=== PATIENT | female | born 1960 | race Caucasian/White ===

== ENCOUNTER 2021-09-16 08:41 | Observation (INO) ==
[2021-09-15 13:01] LABS: Basophils # (auto) 0.01 K/uL (0-0.2); Basophils % (auto) 0.2 %; Eosinophils # (auto) 0.14 K/uL (0-0.5); Eosinophils % (auto) 2.6 %; Hematocrit (blood only) 43.8 % (37-47); Hemoglobin 14.3 g/dL (12.0-16.0); Lymphocytes # (auto) 2.35 K/uL (1.2-3.4); Lymphocytes % (auto) 42.8 %; Mean Corpuscular Hgb Conc 32.6 g/dL (32-36); Mean Corpuscular Volume 88.8 fL (80-100); Mean Platelet Volume 10.4 fL (7.4-10.4); Monocytes # (auto) 0.63 K/uL (0.11-0.59); Monocytes % (auto) 11.5 %; Neutrophils # (auto) 2.36 K/uL (1.4-6.5); Neutrophils % (auto) 42.9 %; Platelet Count 291 K/uL (130-400); RDW Coefficient of Variation 14.7 % (11.5-14.5); RDW Standard Deviation 48.1 fL (36.4-46.3); Red Blood Count 4.93 M/uL (4.2-5.4); White Blood Count 5.49 K/uL (4.8-10.8)
[2021-09-15 13:21] LABS: Alanine Aminotransferase 14 U/L (7-52); Albumin Globulin Ratio 1.4 (0.9-2); Albumin Level 4.1 gm/dl (3.4-5.0); Alkaline Phosphatase 64 U/L (34-104); Anion Gap 7 (3-11); Aspartate Aminotransferase 19 U/L (13-39); BUN Creatinine Ratio 24.7 (10-20); Bilirubin,Total 0.5 mg/dl (0.2-1.0); Blood Urea Nitrogen 19 mg/dl (6-23); Calcium 9.2 mg/dl (8.5-10.1); Carbon Dioxide 28 mmol/L (21-32); Chloride 105 mmol/L (98-107); Est GFR (African American) 96.6 ml/min; Est GFR (Non-African American) 83.3 ml/min; Glucose 99 mg/dl (70-99(Fasting)); Potassium 3.8 mmol/L (3.5-5.1); Sodium 140 mmol/L (136-145); Total Protein 7.1 gm/dl (6.0-8.3)
--- NOTE | 2021-09-15 14:40 | Anesthesiology Consultation ---
Date of Service September 15, 2021 Assessment & Plan (1) Encounter for pre-operative examination: - Patient is NOT outpatient join candidate. - Patient last seen by cardiology 03/31/21= seen for follow-up on recent cardiac catheterization and ascending thoracic aortic aneurysm. Patient with history of chest discomfortsubsequently underwent nuclear stress test revealed a small reversible apical perfusion defectfollow-up cardiac catheterization showed widely patent coronary arteries. In respect stress test was likely a false positive. Patient was transitioned off atenolol due to concerns of weight loss efforts and was put on lisinopril in the meantimeoff the atenolol she notes brief almost daily episodes of palpitations and a slight cough with lisinopril. No recurrent episodes of chest discomfort.Patient should maintain daily aspirin therapycan be held 5 to 7 days in advance to upcoming orthopedic surgery. Stable ascending root aneurysm. Repeat chest CT in 1 year. Patient was taken off lisinopril and resumed atenolol. "Preoperative cardiovascular examination: She is stable from a cardiology perspective to proceed with elective hip replacement is tentatively scheduled with Dr. Diallo in April. No further cardiac testing recommended at this time." - COVID screening: Per thrill performer on 09/15/2021: Travel screen negative, no known COVID-19 positive contacts or current COVID-19 related symptoms in past 2 weeks. Patient vaccinated. Surgeon arranging preop COVID testing, scheduled 09/15/2021. Awaiting results. Chart Review Chart Review: Acceptable Risk for Surgery and Patient NOT seen in Pre Admission Testing History Surgery Operation Date: 09/16/21 10:40 Proposed Procedures p Right Total Hip Arthroplasty - Zach Diallo MD Surgery re-scheduled, PAT appt 04/07/2021. Height/Weight Height: 5 ft 6 in Weight: 97.522 kg Allergies Allergy/AdvReac Type Severity Reaction Status Date / Time erythromycin base Allergy Intermediate RASH Verified 09/16/21 09:00 amoxicillin Allergy Mild RASH Verified 09/16/21 09:00 latex Allergy Mild pruritus Verified 09/16/21 09:00 Sulfa (Sulfonamide Allergy Mild RASH Verified 09/16/21 09:00 Antibiotics) Medications Home Medications Medication Instructions Recorded Confirmed Last Taken atenolol 25 mg tablet 12.5 mg PO QAM 09/22/20 09/16/21 09/16/21 07:00 tretinoin 0.05 % topical cream 1 applic TOPICAL HS 12/06/20 09/16/21 09/14/21 20:00 aspirin 81 mg tablet,delayed 81 mg PO QAM 01/04/21 09/16/21 09/15/21 07:00 release conjugated estrogens 0.625 mg 0.625 mg PO QAM 01/04/21 09/16/21 09/15/21 07:00 tablet (Premarin) nitroglycerin 0.4 mg sublingual See Rx Instructions .ROUTE .COMPLEX 01/04/21 09/16/21 Unknown tablet Wheeled Walker #1 ea 04/07/21 04/07/21 Unknown diclofenac sodium 75 mg 75 mg PO BID PRN #60 tab 07/21/21 09/16/21 Unknown tablet,delayed release acetaminophen 500 mg capsule 1,000 mg PO TID #180 cap 09/15/21 09/16/21 Unknown aspirin 81 mg tablet,delayed 81 mg PO BID 45 Days #90 tab 09/15/21 09/16/21 Unkn own release (Adult Aspirin Regimen) ketorolac 10 mg tablet 10 mg PO Q6 5 Days #20 tab 09/15/21 09/16/21 Unknown multivitamin 1 tab PO QPM 09/15/21 09/16/21 09/15/21 17:00 ondansetron HCl 4 mg tablet 4 mg PO Q6 PRN #30 tab 09/15/21 09/16/21 Unknown sennosides 8.6 mg-docusate sodium 1 tab-cap PO DAILY #14 tab 09/15/21 09/16/21 Unknown 50 mg tablet (Senokot-S) tramadol 50 mg tablet 50 - 100 mg PO Q6H PRN #40 tab 09/15/21 09/16/21 Unknown Active Medications Generic Name Dose Route Start Last Admin Trade Name Freq PRN Reason Stop Dose Admin Acetaminophen 1,000 mg 09/16/21 06:00 09/16/21 09:34 Acetaminophen 500 Mg Tab PO 09/16/21 18:00 1,000 mg PREOP IRINA Administration Famotidine 20 mg 09/16/21 06:00 09/16/21 09:34 Famotidine 20 Mg Tab PO 09/16/21 18:00 20 mg PREOP IRINA Administration Gabapentin 600 mg 09/16/21 06:00 09/16/21 09:34 Gabapentin 600 Mg Dose PO 09/16/21 18:00 600 mg PREOP IRINA Administration Lactated Ringer's 1,000 mls @ 15 mls/hr 09/16/21 06:00 09/16/21 09:35 Lr IV 09/16/21 18:00 15 mls/hr .Q24H IRINA Administration Lactated Ringer's 1,000 mls @ 60 mls/hr 09/16/21 06:00 09/16/21 09:35 Lr IV 09/16/21 22:39 Not Given .[id number] IRINA Metoclopramide HCl 10 mg 09/16/21 06:00 09/16/21 09:34 Metoclopramide Hcl 10 Mg Tablet PO 09/16/21 18:00 10 mg PREOP IRINA Administration Scopolamine 1 mg 09/16/21 06:00 09/16/21 09:33 Scopolamine 1 Mg Tdsy TD 09/16/21 18:00 1 mg PREOP IRINA Administration NPO Last Intake of Fluids Comment: Yesterday Last Intake of Solids Comment: Yesterday Past Medical History Medical History DDD (degenerative disc disease) HTN (hypertension) Osteoarthritis Pulmonary nodule Being monitored - stable in size Thoracic aortic aneurysm (TAA) Dr. George monitoring -- per 03/23/21 CTA= [id number] to mid ascending aortic dilation (stable in size from February 2020) plan for repeat CT chest in 1 yr per 03/2021 cardio note Thyroid nodule Benign with biopsy Past Family History Family History Other No family history of adverse response to anesthesia Past Surgical History Surgical History History of arthroscopy of right knee History of bunionectomy History of cardiac catheterization 12/2020 - [place] - [place] - no stents/angioplasty History of colonoscopy History of incision and drainage orofacial abscess History of total abdominal hysterectomy and bilateral salpingo-oophorectomy History of wisdom tooth extraction S/P thyroid biopsy Social History Smoking Status: Never smoker Do You Dip or Chew Tobacco: No Hx Alcohol Use: No Hx Substance Use: No substance use type: does not use Review of Systems "Occ palpitations - cardio aware - patient had recent med changes by cardio- restarted on beta nickolas Patient denies chest pain, shortness of breath, dyspnea on exertion, reflux, cough, wheezing. No hx of seizures, stroke, MA, apnea/snoring. No hx of blood clots or blood transfusions" Physical Exam Vital Signs Last Vital Signs Temp 36.6 C 09/16/21 09:08 Pulse 64 09/16/21 09:08 Resp 20 09/16/21 09:08 BP 143/84 H 09/16/21 09:08 Pulse Ox 100 09/16/21 09:08 VITALS BP 140/81 P 57 TEMP 98.7 SP02 98% RESP 16 Constitutional no acute distress ENMT Mouth: no TMJ clicking Thyromental Distance: < 3.5 Finger Breadths (2.5) Mallampati Class: II Missing molars Crowns to molars Neck neck extension not limited Respiratory normal respiratory effort; no respiratory distress Auscultation: lungs clear to auscultation bilaterally; no wheezes Cardiovascular Rate/Rhythm: regular rate and regular rhythm Heart Sounds: no murmur Vessels: no carotid bruit Musculoskeletal Spine: no pain with cervical ROM Extremities: extremities normal to inspection Psychiatric Orientation: alert Lab Results Anesthesia Preop Results Results Anesthesia Widget: WBC 5.49 K/uL (4.8-10.8) 09/15/21 Hgb 14.3 g/dL (12.0-16.0) 09/15/21 Hct 43.8 % (37-47) 09/15/21 Plt 291 K/uL (130-400) 09/15/21 Na 140 mmol/L (136-145) 09/15/21 K 3.8 mmol/L (3.5-5.1) 09/15/21 Cl 105 mmol/L (98-107) 09/15/21 CO2 28 mmol/L (21-32) 09/15/21 BUN 19 mg/dl (6-23) 09/15/21 Creat 0.77 mg/dl (0.6-1.2) 09/15/21 Glucose Level 99 mg/dl (70-99(Fasting)) 09/15/21 PT 10.0 Seconds (9.0-12.0) 09/15/21 INR 1.0 (0.9-1.1) 09/15/21 SARS-CoV-2, RNA, NAAT NEGATIVE (NEGATIVE) 09/16/21 Blood Type O Positive 09/15/21 Antibody Screen NEGATIVE 09/15/21 Testing Laboratory Results 09/15/21 08:17 09/15/21 08:17 PT 10.0 Seconds (9.0-12.0) 09/15/21 08:17 INR 1.0 (0.9-1.1) 09/15/21 08:17 Blood Type O Positive 09/15/21 08:17 Antibody Screen NEGATIVE 09/15/21 08:17 Electrocardiogram Date: 12/06/20 Findings: + NR @ (61bpm) Left axis deviation. Moderate voltage criteria for LVH, may be normal variant Chest X-Ray Date: 12/06/20 NAD Echocardiogram Date: 03/10/21 EF: 65-69% LV Function: normal RWMA: + none Other Findings: + diastolic dysfunction (Grade 1); no LVH Valvular Disease: + AI (Mild) Ascending aorta is moderately enlarged at 4.5 cm. When compared to study from 03/16/2020no significant changes found. Stress Test Date: 12/28/20 Type: nuclear Lexiscan nuclear stress test is positive for inducible ischemia involving the left ventricular apex. Gated SPECT images reveals normal myocardial thickening and wall motion. LVEF >70%. (Pt had subsequent cardiac catheterization 01/04/21 with normal coronary arteries) Cardiac Catheterization Date: 01/04/21 Widely patent and normal coronary anatomy. Normal left ventricular function. The ascending aorta is dilated.Measurements suggest an ascending aortic diameter of between 4.3 and 4.9 cm. The aortic valve and root have normal morphology. There is no significant aortic insufficiency. Other Testing Chest CTA 03/23/2021= stable mid ascending aortic dilation, 45 x 46 mm (was 44 x 46 mm 03/18/2020). Stable asymmetric enlargement and mild hypodensity of left lobe of thyroid. No suspicious pulmonary nodules. Left upper lobe nodule noted previously unchanged from priors and consistent with benign etiology. No pleural effusions or pneumothorax.
--- NOTE | 2021-09-15 22:42 | History & Physical Report ---
Date of Service September 15, 2021 Assessment & Plan (1) Arthritis of right hip: Take to OR for Right Hip Replacement. Risks and benefits explained. Desires to proceed. History of Present Illness Chief Complaint: . Right HIp Pain Primary Care Provider: Mathew Butts MD . 61 year old female with 6-7 year history of increasing right hip pain. Failed all conservative measures. Groin and thigh pain. Increased with ambulation. Allergies Allergy/AdvReac Type Severity Reaction Status Date / Time erythromycin base Allergy Intermediate RASH Verified 09/15/21 08:30 amoxicillin Allergy Mild RASH Verified 09/15/21 08:30 latex Allergy Mild pruritus Verified 09/15/21 08:30 Sulfa (Sulfonamide Allergy Mild RASH Verified 09/15/21 08:30 Antibiotics) Home Medications Medication Instructions Recorded Confirmed Type atenolol 25 mg tablet 12.5 mg PO QAM 09/22/20 09/15/21 History tretinoin 0.05 % topical cream 1 applic TOPICAL HS 12/06/20 09/15/21 History aspirin 81 mg tablet,delayed 81 mg PO QAM 01/04/21 09/15/21 History release conjugated estrogens 0.625 mg 0.625 mg PO QAM 01/04/21 09/15/21 History tablet (Premarin) nitroglycerin 0.4 mg sublingual See Rx Instructions .ROUTE .COMPLEX 01/04/21 09/15/21 History tablet Wheeled Walker #1 ea 04/07/21 04/07/21 Rx diclofenac sodium 75 mg 75 mg PO BID PRN #60 tab 07/21/21 09/15/21 Rx tablet,delayed release acetaminophen 500 mg capsule 1,000 mg PO TID #180 cap 09/15/21 Rx aspirin 81 mg tablet,delayed 81 mg PO BID 45 Days #90 tab 09/15/21 Rx release (Adult Aspirin Regimen) ketorolac 10 mg tablet 10 mg PO Q6 5 Days #20 tab 09/15/21 Rx multivitamin 1 tab PO QPM 09/15/21 09/15/21 History ondansetron HCl 4 mg tablet 4 mg PO Q6 PRN #30 tab 09/15/21 Rx sennosides 8.6 mg-docusate sodium 1 tab-cap PO DAILY #14 tab 09/15/21 Rx 50 mg tablet (Senokot-S) tramadol 50 mg tablet 50 - 100 mg PO Q6H PRN #40 tab 09/15/21 Rx Past Med/Surg History Medical History DDD (degenerative disc disease) HTN (hypertension) Osteoarthritis Pulmonary nodule Being monitored - stable in size Thoracic aortic aneurysm (TAA) Dr. George monitoring -- per 03/23/21 CTA= [id number] to mid ascending aortic dilation (stable in size from February 2020) plan for repeat CT chest in 1 yr per 03/2021 cardio note Thyroid nodule Benign with biopsy Surgical History History of arthroscopy of right knee History of bunionectomy History of cardiac catheterization 12/2020 - [place] - [place] - no stents/angioplasty History of colonoscopy History of incision and drainage orofacial abscess History of total abdominal hysterectomy and bilateral salpingo-oophorectomy History of wisdom tooth extraction S/P thyroid biopsy Family History Other No family history of adverse response to anesthesia Social History Smoking Status: Never smoker Second Hand Exposure: Yes (as a child); Hx Alcohol Use: No Hx Substance Use: No Preferred Language: Czech Communication Ability: Effective Hoisting Engineer Required: No Beliefs That Will Affect Care: None Current Living Situation: Spouse Feels Safe at Home: Yes Assistive Devices: None Review of Systems All systems reviewed & are unremarkable except as noted in HPI & below. Physical Exam Right Hip Exam reveals walk with limp. Limited hip ROM with pain with internal rotation. Negative SLR. N/V intact Results & Data Results & Data Laboratory Results . Diagnostic Findings .X-rays show advanced hip arthritis; PG Care Time/CCT Total # of Minutes Spent Total Time Spent with Patient: Total time spent is greater than 50% in coordination of care (as documented) at patient's floor/unit and/or counseling patient: Coding Level of Care Code 93728 Initial Inpt Care Lvl 3 Diagnoses Arthritis of right hip M16.11
[~2021-09-16 08:41] MED LIST: ACETAMINOPHEN 500 MG TAB PO SCH; BUPIVACAINE 0.5 % 5 MG/1 ML PF 10ML VIAL ONE; BUPIVACAINE LIPOSOME/PF 266 MG, BUPIVACAINE/EPINEPHRINE 50 ML, SODIUM CHLORIDE 0.9% 30 ... INFIL SCH; FAMOTIDINE 20 MG TAB PO SCH; GABAPENTIN 600 MG DOSE PO SCH; LR 500ML BOLUS, THEN 15ML/HR IV SCH; LR 60ML/HR IV SCH; METOCLOPRAMIDE HCL 10 MG TABLET PO SCH; Scopolamine 1 MG TDSY TD SCH; TRANEXAMIC ACID 1,000 MG **IV Pre-op IV SCH; ceFAZolin 2000MG 2,000 MG/15 ML SYR IV SCH
--- NOTE | 2021-09-16 08:54 | History & Physical Bridge Note ---
Date of Service September 16, 2021 History & Physical Bridge Note I have examined the patient, reviewed the History & Physical and in the interval since the performance of the History & Physical I have noted the following changes of clinical significance: no changes noted
[2021-09-16] MEDS ORDERED: MIDAZOLAM HCL 1 MG/ML 2ML VIAL ONE (09:28)
[2021-09-16] MEDS ORDERED: PROPOFOL IV EMULSION 10 MG/ML 20 ML VIAL IV ONE ×2 (09:29→12:55)
[2021-09-16] MEDS ORDERED: MoRPHine SULFATE PF 1 MG/ML 10 ML AMP/VIAL ONE (09:40)
[2021-09-16] MEDS ORDERED: NALBUPHINE HCL INJ 10 MG/ML AMP IV PRN (10:41)
[2021-09-16] MEDS ORDERED: MoRPHine SULFATE PF 1 MG/ML 10 ML AMP/VIAL INT SPINAL ONE (10:41)
[2021-09-16] MEDS ORDERED: PROMETHAZINE HCL 12.5 MG in SODIUM CHLORIDE 0.9% 50 ML IV PRN (10:41)
[2021-09-16] MEDS ORDERED: diphenhydrAMINE 50 MG/ML VIAL IV PRN (10:41)
[2021-09-16] MEDS ORDERED: MEPERIDINE HCL 25 MG/ML CARP/VIAL IV PRN (10:41)
[2021-09-16] MEDS ORDERED: NALOXONE HCL 1 MG in SODIUM CHLORIDE 0.9% 1000ML 1,000 ML IV PRN (10:41)
[2021-09-16] MEDS ORDERED: NALOXONE HCL 0.08 MG in SYRINGE 1.8 ML IV PRN (10:41)
[2021-09-16] MEDS ORDERED: NALOXONE HCL 0.4 MG/1 ML VIAL/CARP IV PRN (10:41)
[2021-09-16] MEDS ORDERED: KETOROLAC 30 MG/ML VIAL IV PRN (10:41)
[2021-09-16] MEDS ORDERED: LACTATED RINGER'S 500 ML IV PRN (10:41)
[2021-09-16] MEDS ORDERED: ePHEDrine sulfate 50 MG/ML AMP IV PRN (10:41)
[2021-09-16] MEDS ORDERED: ONDANSETRON INJ 2 MG/ML 2 ML VIAL IV PRN (10:41)
[2021-09-16] MEDS ORDERED: DC INTRASPINAL MORPHINE SCH (10:45)
[2021-09-16] MEDS ORDERED: NO NARCOTICS OR SEDATIVES SCH (10:45)
[2021-09-16] MEDS ORDERED: SODIUM CHLORIDE 0.9% 1000ML 1,000 ML IV SCH (10:45)
[2021-09-16] MEDS ORDERED: BUPIVACAINE 0.5 % 5 MG/1 ML MPF 30ML VIAL ONE (11:04)
[2021-09-16] MEDS ORDERED: EPINEPHrine INJ 1 MG/ML AMP ONE (11:05)
[2021-09-16] MEDS ORDERED: ONDANSETRON INJ 2 MG/ML 2 ML VIAL ONE (11:39)
[2021-09-16] MEDS ORDERED: KETOROLAC 30 MG/ML VIAL ONE (11:39)
[2021-09-16] MEDS ORDERED: ePHEDrine sulfate 50 MG/ML AMP ONE (11:52)
[2021-09-16] MEDS ORDERED: MAGNESIUM HYDROXIDE SUSP 30 ML UDC PO PRN (13:18)
[2021-09-16] MEDS ORDERED: METOCLOPRAMIDE HCL INJ 5 MG/ML 2 ML VIAL IV PRN (13:18)
[2021-09-16] MEDS ORDERED: bisacodyL 10 MG SUPP PR PRN (13:18)
[2021-09-16] MEDS ORDERED: ALUMINUM/MAGNESIUM SUSP 30 ML UDC PO PRN (13:18)
--- NOTE | 2021-09-16 13:35 | Operative Report ---
PG Post Operative Report Pre & Post Diagnosis Operation Date: 09/16/21 10:40 Pre-Op Diagnosis: Right Hip Degenerative Joint Disease Post-Op Diagnosis: Right Hip Degenerative Joint Disease I identified the patient and participated in the time-out.: Yes Procedure Operation Date: 09/16/21 10:40 Actual Procedures p Right Total Hip Arthroplasty--Uncemented(Right) - Zach Diallo MD Surgeon Zach Diallo MD Staffing Consultant Kumar Stinson PA-C Estimated Blood Loss 300 Findings Consistent with Post-Op Diagnosis Operative findings were advanced right hip DJD. She had fairly advanced arthritis particular the superior dome of the femoral head. Very large soft tissue envelope. Moderate-sized joint effusion. Not a lot of osteophyte formation Fluids 2000 cc Specimens Right femoral head sent for pathology Drains None Anesthesia Type Spinal MAC Complications none Disposition Accompanied Patient To Recovery: Yes Indications Patient is a 61-year-old female has had a 7-year history of increasing right hip pain discomfort is gotten singly worse over the past 6 months. She failed conservative measures. X-rays show progressive arthritis of her hip but with complete loss of superior joint space. She elected proceed with surgical treatment. Description of Procedure Operative implants consist of: 1 Biomet G7 size 48 mm acetabular shell. 2. 6.5 cancellous acetabular screws 1 of 35 mm in length 1 to 20 mm length. 3. [place] hole head strength and conditioning coach. 4. Highly cross-linked polyethylene liner with a 48 mm outer diameter, 32 mm inner diameter with a garcia placed inferior and posterior. 5. Dominique Karaya size 10 KLA femoral stem. 6. +9/32 mm ceramic articular ball. The patient was taken to the operating, identified, placed on the operating table supine position protectors were properly padded. IV antibiotics tried by anesthesia team. A spinal anesthetic and been implemented holding area. The patient was then placed in the left lateral cubitus position. An axillary roll was placed. Stulberg hip positioner was used for positioning. The right hip and leg were then prepped and draped in usual sterile fashion. A posterior lateral approach to the right hip was then performed through a curvilinear incision centered over the greater trochanter. Sharp dissection got through subcutaneous tissue down to level the IT band gluteal fascia. She did have a very thick soft tissue envelope. The IT band was incised longitudinally in line with skin incision. The underlying greater bursa was excised. The piriformis and external rotators along with the posterior hip joint capsule were then excised/released from the posterior aspect of the femur as a single layer. Great care was taken throughout the procedure to protect the sciatic nerve at all times. The hip was internally rotated and dislocated. A femoral neck osteotomy cut was made with Final Cut about 10 mm above the lesser trochanter. Femoral head was removed and sent for pathology. The femur retracted anteriorly. Attention drawn the acetabulum. The acetabular labrum was excised per the pulmonary fat was excised. Sequential reaming the acetabular was then performed again with size 43 and progressing up to 47. I did reamed a little bit with a 48 reamer. A 48 mm Biomet G7 acetabular shell was then placed in about 40 degrees lateral opening and 20 degrees of anteversion. We worked hard to get this an appropriate deposition due to her soft tissue envelope. It was then secured with two 6.5 cancellous acetabular screws. Trial liner was placed and attention then drawn the femur. Proximal femur was entered with a cookie-cutter followed by canal finder. I then broached begin the size 8 and progressing up to a 10. Got excellent fit of the tendon. I trialed the hip. The hip was fully stable in full extension and external rotation flexion to 90 degrees internal rotation about 40 degrees. That was fully stable with the hip extended but in flexion was a bit more unstable. Therefore elected to place a garcia inferior and posterior. We did not end up placing a +9 articular ball to maximize her stability and soft tissue tension and to equalize leg lengths. Attention then drawn toward placing these implants. All trial implants were removed. An apex hole head strength and conditioning coach was placed. Highly cross-linked polyethylene liner was placed. I did use a lipped liner and placed inferior and posterior to maximize her hip stability in flexion. A 10 KLA femoral stem was impacted in position. A +9/32 mm ceramic articular ball was placed. Hip was located once again found to be stable. Attention drawn toward closing. The wound was irrigated with Cosopt of normal saline. We injected locally with 60 cc of absent Marcaine with epinephrine. The posterior capsule and external rotators were repaired as a single layer through drill holes in the posterior trochanter with #2 Tycron suture. The IT band gluteal fascia then closed in 1 PDS suture running fashion for subcutaneous tissues then closed in 2 layers with a deep layer #2 Vicryl suture followed by a 2-0 Dexon suture in the more subcutaneous tissues. The skin was closed skin roberto. Leg was then cleaned and dried and a Prevena VAC dressing was applied due to the large and thick soft tissue envelope. Patient then transferred to the recovery room in stable condition. Patient tolerated procedure well and there were no complications. Kumar Stinson, my physician real estate executive assistant, was present for the entire procedure. His assistance was essential and required for appropriate patient positioning, prepping and draping, surgical exposure, performing the technical details of the operation, placement the implants, closure of the wound, and placement of the sterile bandage. I attest to the content of the Intraoperative Record and any orders documented therein. Any exceptions are noted below.
--- NOTE | 2021-09-16 14:14 | XRay Report ---
SINGLE VIEW PELVIS; SINGLE VIEW RIGHT HIP CLINICAL HISTORY: Postoperative examination. FINDINGS: An AP portable view of the hips and pelvis with a crosstable lateral portable view of the r ight hip are obtained. A bipolar right hip arthroplasty is in near-anatomic alignment. At least 2 cor tical lag screws transfix the acetabular cup. No acute fracture is identified. There are expected pos toperative changes overlying the right hip including skin clips, subcutaneous gas, and soft tissue sw elling. Mild arthritic changes seen in the left hip. IMPRESSION: Expected postoperative findings status post right hip arthroplasty. No acute fracture is seen. ACT 112: Negative or not required by law. Electronically signed by: Carlos Gross M.D. 09/16/2021 2:13 PM
--- NOTE | 2021-09-16 15:26 | Anesthesiology Progress Note ---
Date of Service September 16, 2021 Anesthesia Post Procedure Vital Signs Vital Signs: Temp Pulse Pulse Resp BP Pulse Ox 09/16/21 15:15 49 L 16 113/61 96 09/16/21 15:05 47 L 14 106/60 98 09/16/21 14:55 46 L 14 117/62 98 09/16/21 14:45 51 L 12 114/56 L 100 09/16/21 14:35 49 L 14 123/47 L 94 09/16/21 14:25 47 L 17 91/56 L 92 09/16/21 14:15 46 L 14 94/57 L 94 09/16/21 14:05 46 L 17 95/56 L 93 09/16/21 13:55 51 L 18 90/56 L 94 09/16/21 13:45 48 L 16 107/55 L 99 09/16/21 13:35 48 L 14 97/48 L 100 09/16/21 13:25 50 L 17 99/55 L 100 09/16/21 13:18 36.0 C L 55 L 17 95/52 L 100 09/16/21 09:08 36.6 C 64 20 143/84 H 100 Transfer of Care Handoff Completed per policy Notes Mental Status: alert / awake / arousable Patient Amnestic to Procedure: Yes Nausea / Vomiting: adequately controlled Pain: adequately controlled Airway Patency, RR, SpO2: stable & adequate BP & HR: stable & adequate Hydration State: stable & adequate Anesthetic Complications: no major complications apparent
[2021-09-16] MEDS ORDERED: ONDANSETRON 4 MG OD TAB PO PRN (16:08)
[2021-09-16] MEDS: SODIUM CHLORIDE 0.9% 1000ML 1,000 ML IV SCH (17:04)
[2021-09-16] MEDS: ACETAMINOPHEN 500 MG TAB PO SCH ×2 (17:05→22:29)
[2021-09-16] MEDS: ASCORBIC ACID 500 MG TAB PO SCH (17:06)
[2021-09-16] MEDS: Scopolamine CHECK PATCH PLACEMENT SCH (17:06)
[2021-09-16] MEDS ORDERED: KETOROLAC 30 MG/ML VIAL IV SCH (18:00)
[2021-09-16] MEDS: ceFAZolin 2000MG 2,000 MG/15 ML SYR IV SCH (18:17)
[2021-09-16] MEDS ORDERED: TRANEXAMIC ACID / 0.7% NACL 1,000 MG/100 ML BAG IV SCH (19:30)
[2021-09-16] MEDS: ASPIRIN 81 MG ECTAB PO SCH (20:20)
[2021-09-16] MEDS: DOCUSATE SODIUM 100 MG CAP PO SCH (20:21)
[2021-09-16] MEDS ORDERED: TRETINOIN 0.05% TOP SCH (21:00)
[2021-09-16] MEDS ORDERED: ASPIRIN 81 MG ECTAB PO SCH (21:00)
[2021-09-16] MEDS ORDERED: SENNA 8.6 MG TAB PO SCH (21:00)
[2021-09-16] MEDS ORDERED: NON-FORMULARY MEDICATION (Multivitamin Tablet) PO SCH (21:00)
[2021-09-17] MEDS: Scopolamine CHECK PATCH PLACEMENT SCH ×2 (00:27→07:24)
[2021-09-17] MEDS: SODIUM CHLORIDE 0.9% 1000ML 1,000 ML IV SCH (02:27)
[2021-09-17] MEDS: ceFAZolin 2000MG 2,000 MG/15 ML SYR IV SCH (03:53)
[2021-09-17] MEDS ORDERED: traMADol HCL 50 MG TABLET PO PRN ×2 (04:43)
[2021-09-17] MEDS ORDERED: diphenhydrAMINE Capsule 25 MG CAP PO PRN (04:43)
[2021-09-17] MEDS ORDERED: HYDROmorphone INJ 0.5 MG/0.5 ML SYR IV PRN (04:43)
[2021-09-17] MEDS ORDERED: NALOXONE HCL 0.4 MG/1 ML VIAL/CARP IV PRN (04:43)
[2021-09-17] MEDS ORDERED: ONDANSETRON INJ 2 MG/ML 2 ML VIAL IV PRN (04:43)
[2021-09-17] MEDS: ACETAMINOPHEN 500 MG TAB PO SCH (05:38)
[2021-09-17] MEDS: KETOROLAC 30 MG/ML VIAL IV SCH ×2 (05:39→11:13)
[2021-09-17 05:57] LABS: Basophils # (auto) 0.02 K/uL (0-0.2); Basophils % (auto) 0.4 %; Eosinophils # (auto) 0.06 K/uL (0-0.5); Eosinophils % (auto) 1.1 %; Hematocrit (blood only) 34.1 % (37-47); Hemoglobin 11.1 g/dL (12.0-16.0); Immature Granulocytes # (auto) 0.01 K/uL (0.00-0.02); Immature Granulocytes % (auto) 0.2 %; Lymphocytes # (auto) 0.64 K/uL (1.2-3.4); Lymphocytes % (auto) 11.7 %; Mean Corpuscular Hemoglobin 28.9 pg (25-34); Mean Corpuscular Hgb Conc 32.6 g/dL (32-36); Mean Corpuscular Volume 88.8 fL (80-100); Mean Platelet Volume 10.2 fL (7.4-10.4); Monocytes # (auto) 0.57 K/uL (0.11-0.59); Monocytes % (auto) 10.4 %; Neutrophils # (auto) 4.16 K/uL (1.4-6.5); Neutrophils % (auto) 76.2 %; Platelet Count 203 K/uL (130-400); RDW Coefficient of Variation 14.4 % (11.5-14.5); RDW Standard Deviation 47.1 fL (36.4-46.3); Red Blood Count 3.84 M/uL (4.2-5.4); White Blood Count 5.46 K/uL (4.8-10.8)
[2021-09-17 06:14] LABS: BUN Creatinine Ratio 16.1 (10-20); Calcium 8.1 mg/dl (8.5-10.1); Creatinine Clr Calc Pharmacy 114.3 ml/min; Est GFR (African American) 112.8 ml/min; Est GFR (Non-African American) 97.3 ml/min; Potassium 4.2 mmol/L (3.5-5.1)
[2021-09-17] MEDS: ASCORBIC ACID 500 MG TAB PO SCH (07:24)
[2021-09-17] MEDS ORDERED: dexAMETHasone 10 MG in SYRINGE 0 ML IV SCH (08:00)
[2021-09-17] MEDS: ASPIRIN 81 MG ECTAB PO SCH (08:11)
[2021-09-17] MEDS: DOCUSATE SODIUM 100 MG CAP PO SCH (08:11)
--- NOTE | 2021-09-17 08:20 | Progress Notes ---
DATE OF SERVICE: 09/17/2021. SUBJECTIVE: A 61-year-old white female postoperative day 1 from right hip replacement. She is doing pretty well. No pain at all while lying in bed. Some pain with walking, but manageable. No chest pain or shortness of breath. Not feeling dizzy or lightheaded. OBJECTIVE: VITAL SIGNS: Temperature 37.1. Vital signs are stable. PHYSICAL EXAMINATION: GENERAL: Shows a pleasant middle-aged female. She is sitting up in bed and looks comfortable. LUNGS: Clear to auscultation. HEART: Has a regular rate and rhythm. ABDOMEN: Soft, nontender, nondistended. EXTREMITIES: Grossly neurovascularly intact except as follows: Examination of the right leg reveals the Prevena VAC dressing to be in place. Leg lengths were equal. Hip is located. She is neurologi ayah intact. LABORATORY DATA: Hemoglobin 11.1. Hematocrit 34.1. Electrolytes are stable. ASSESSMENT: A 61-year-old white female postoperative day 1 from her right hip replacement, doing pre tty well. Pain is controlled. She is neurologically intact. Hip is located. PLAN: 1. DVT prophylaxis includes thigh-high TEDs, SCDs, and aspirin twice a day. 2. PT, OT, weightbear as tolerated. Right total hip protocol. 3. Pain control, doing okay with current pain regimen. 4. Disposition: Plan to discharge to home with some home health if does okay in therapy today. Job ID: [id number]
[2021-09-17] MEDS ORDERED: MULTIVITAMIN TAB PO SCH (09:00)
[2021-09-17] MEDS ORDERED: ATENOLOL 25 MG TABLET PO SCH (09:00)
[2021-09-17] MEDS ORDERED: ASPIRIN 81 MG ECTAB PO SCH (09:00)
[2021-09-17] MEDS ORDERED: DOCUSATE SODIUM/SENNA 50/8.6MG TAB PO SCH (09:00)
[2021-09-17] MEDS ORDERED: ESTROGENS, CONJUGATED 0.625 MG TAB PO SCH (09:00)
--- NOTE | 2021-09-23 09:58 | Discharge Summary ---
Date of Service September 23, 2021 Discharge Data Procedures Performed Operation Date: 09/16/21 10:40 Actual Procedures p Right Total Hip Arthroplasty--Uncemented(Right) - Zach Diallo MD Hospital Course (1) S/P total right hip arthroplasty: Jovita is a 61 year old patient admitted on 09/16/21 and underwent total hip arthroplasty. She tolerated the procedure well and there were no complications. Transferred to the PACU post op and later to the orthopedic floor for further care. She was given ancef for antibiotic prophylaxis. She was also given LUIS F stockings, SCDs, and aspirin for DVT prophylaxis. Hemoglobin, hematocrit, and vital signs were monitored during her hospital stay and remained stable. Did not require any blood transfusions. There were no complications d uring her hospital stay. By post op day #1 the patient was tolerating a regular diet, pain was reasonably controlled with oral pain medicine, and she was participating in physical therapy. On post op day #1 the patient was discharged home and set up with home health care. She was given printed discharge instructions including prescriptions for extra strength tylenol, aspirin, toradol, zofran, and tramadol. Continue physical therapy, weight bearing as tolerated. Continue hip precautions. Continue LUIS F stockings. Follow up approximately 2 weeks post op or sooner if there are problems or concerns. Coding Level of Care Code None Diagnoses S/P total right hip arthroplasty Z96.641
== END 2021-09-17 13:36 | disposition home health service (06) ==
LOC: ASU 08:41 → 3E 08:41